=== PATIENT | female | born 1975 | race Hispanic/Latino ===

== ENCOUNTER 2018-05-21 08:00 | Day surgery (SDC) | payer OTHER ==
[~2018-05-21] VITALS: Ht 165.1 cm; Wt 66.6 kg
[~2018-05-21 08:00] MED LIST: SODIUM CHLORIDE 0.9% 1000ML 1,000 ML IV ONE
[2018-05-21 08:42] VITALS: BP 122/63
[2018-05-21] MEDS ORDERED: PROPOFOL 10 MG/ML 20ML VIAL IV ONE (09:15)
[2018-05-21] MEDS ORDERED: LIDOCAINE HCL-MPF 2% 5ML VIAL ONE (09:15)
[2018-05-21 09:47] VITALS: BP 97/48
[2018-05-21 09:51] VITALS: BP 98/48
[2018-05-21 09:57] VITALS: BP 101/72
[2018-05-21 10:06] VITALS: BP 112/67
--- NOTE | 2018-05-21 10:18 | NUR ---
PT TOLERATED PROCEDURE WELL, NO C/O OF ABDOMINAL PAIN S/P PROCEDURE. PT ABLE TO SIT UP DRINK FLUIDS, ASSITED PT TO GET DRESSED. POST CARE INSTRUCTIONS AND PROCEDURE REPORT GIVEN TO , BOTH VERBALIZED UNDERSTANDING. PT PLACED IN WHEELCHAIR DRIVEN HOME BY .
== END 2018-05-21 10:18 | disposition home or self-care (01) ==
LOC: ENDO 08:00 → DAH 08:00 → ENDO 10:18
PROVIDERS: ATTEND Internal Medicine
DX: Z12.11 Encounter for screening for malignant neoplasm of colon (principal); K63.5 Polyp of colon; Z98.890 Other specified postprocedural states; K64.0 First degree hemorrhoids; Z79.899 Other long term (current) drug therapy; K57.30 Diverticulosis of large intestine without perforation or abscess without bleeding
CPT/HCPCS: 36415; 45380; 84703; A4606; J2704; J3490; J7030; 43239

== ENCOUNTER → 2018-11-03 | Outpatient (CLI) | payer OTHER | END | disposition home or self-care (01) | LOC: RAH 09:54 | PROVIDERS: ATTEND Obstetrics & Gynecology | DX: Z12.31 Encounter for screening mammogram for malignant neoplasm of breast (principal) | CPT/HCPCS: 77067 ==

== ENCOUNTER → 2020-10-07 | Outpatient (CLI) | payer OTHER | END | disposition home or self-care (01) | LOC: RAH 14:17 | PROVIDERS: ATTEND Obstetrics & Gynecology | DX: Z12.31 Encounter for screening mammogram for malignant neoplasm of breast (principal); M47.817 Spondylosis without myelopathy or radiculopathy, lumbosacral region; M54.40 Lumbago with sciatica, unspecified side | CPT/HCPCS: 72148; 77067 ==

== ENCOUNTER → 2020-12-16 | Outpatient (CLI) | payer OTHER | END | disposition home or self-care (01) | LOC: RAH 07:53 | PROVIDERS: ATTEND Obstetrics & Gynecology | DX: N60.01 Solitary cyst of right breast (principal); R92.8 Other abnormal and inconclusive findings on diagnostic imaging of breast | CPT/HCPCS: 76641; 77065 ==

== ENCOUNTER 2022-05-21 09:31 | Emergency (ER) | payer OTHER ==
[~2022-05-21] VITALS: Ht 162.6 cm; Wt 68.0 kg
[2022-05-21] MEDS ORDERED: CETIRIZINE HCL 5 MG TABLET PO ONE ×2 (10:14→10:16)
[2022-05-21 10:33] LABS: APPEARANCE,URINE CLEAR (CLEAR); BILIRUBIN,URINE NEGATIVE (NEGATIVE); COLOR,URINE LIGHT-YELLOW (YELLOW); GLUCOSE, URINE (UA) NEGATIVE (NEGATIVE); KETONES,URINE NEGATIVE (NEGATIVE); LEUKOCYTE ESTERASE ,URINE NEGATIVE Leu/uL (NEGATIVE); NITRATE,URINE NEGATIVE (NEGATIVE); OCCULT BLOOD,URINE NEGATIVE (NEGATIVE); PROTEIN,URINE NEGATIVE (NEGATIVE); UROBILINOGEN,URINE 0.2 mg/dL (0.2-1.0)
[2022-05-21] MEDS ORDERED: BENZ-39 PO (11:27)
[2022-05-21] MEDS ORDERED: CETI10TA57 PO (11:27)
[2022-05-21 12:13] VITALS: BP 132/68
[2022-05-22] MEDS ORDERED: CETIRIZINE HCL 5 MG TABLET PO SCH (09:00)
== END 2022-05-21 12:25 | disposition home or self-care (01) ==
LOC: EDH 09:31
DX: R05.9 Cough, unspecified (principal); J02.9 Acute pharyngitis, unspecified; Z20.822 Contact with and (suspected) exposure to COVID-19; Z79.899 Other long term (current) drug therapy
CPT/HCPCS: 99284; 71045; 87635; 84703; 87880; 86308; 81003; 36415; C9803

== ENCOUNTER → 2023-09-23 | Outpatient (CLI) | payer BC ==
[~2023-09-23] MED LIST changes: +BENZ-39 PO; +CETI10TA57 PO; -SODIUM CHLORIDE 0.9% 1000ML 1,000 ML IV ONE
== END | disposition home or self-care (01) ==
LOC: RAH 11:11
PROVIDERS: ATTEND Obstetrics & Gynecology
DX: Z12.31 Encounter for screening mammogram for malignant neoplasm of breast (principal)
CPT/HCPCS: 77067